=== PATIENT | male | born 1950 | race Two or more races ===

== ENCOUNTER 2020-09-04 07:15 | Inpatient (IN) | payer OTHER ==
[~2020-09-04] VITALS: Ht 175.3 cm; Wt 74.8 kg
[2020-09-04] MEDS ORDERED: AMLOD PO (08:27)
[2020-09-04] MEDS ORDERED: FENOFIBRA PO (08:27)
[2020-09-04] MEDS ORDERED: HYDRALAZINE HCL50 MG PO (08:27)
[2020-09-04] MEDS ORDERED: SIMVAST PO (08:28)
[2020-09-04] MEDS ORDERED: DOXAZOSIN MESYLA2 MG PO (08:28)
[2020-09-04] MEDS ORDERED: [UNRECOGNIZED DRUG - CODE] PO (08:29)
[2020-09-04] MEDS ORDERED: FOLIC ACID PO (08:30)
[2020-09-18] MEDS ORDERED: SIMVASTATIN20 MG (08:10)
[2020-09-18] MEDS ORDERED: LIPOFEN150 MG (08:11)
[2020-09-18] MEDS ORDERED: FOLIC ACID1 MG (08:12)
[2020-09-19] MEDS ORDERED: M930 ML PO (08:21)
[2020-09-19] MEDS ORDERED: NORVASC2.5 M1 (08:23)
[2020-09-20] MEDS ORDERED: OXYC1TAB9 PO (06:36)
[2020-09-20] MEDS ORDERED: INTEGRA PLUS C1 EACH PO (06:36)
[2020-09-20] MEDS ORDERED: XARELTO10 MG PO (06:36)
[2020-09-20] MEDS ORDERED: BACTRIM DS TAB1 EACH PO (06:36)
== END 2020-09-20 16:10 | DRG 470 ==
LOC: SURH 09-11 07:15 → O/R 09-18 05:50 → SURG 09-18 14:24
PROVIDERS: ADMIT Orthopaedic Surgery Sports Medicine; ATTEND Orthopaedic Surgery Sports Medicine
PROC: 0SRB0JZ Replacement of Left Hip Joint with Synthetic Substitute, Open Approach (ICD-10-PCS; principal; 2020-09-18 06:27)
DX: M16.12 Unilateral primary osteoarthritis, left hip (principal)

== ENCOUNTER 2020-09-15 13:27 | Outpatient (CLI) | payer OTHER ==
[~2020-09-15 13:27] MED LIST: AMLOD PO; DOXAZOSIN MESYLA2 MG PO; FENOFIBRA PO; FOLIC ACID PO; HYDRALAZINE HCL50 MG PO; SIMVAST PO; [UNRECOGNIZED DRUG - CODE] PO
== END 2020-09-15 13:35 | disposition home or self-care (01) ==
LOC: LAB 13:27
PROVIDERS: ATTEND Orthopaedic Surgery Sports Medicine
DX: Z20.828 Contact with and (suspected) exposure to other viral communicable diseases (principal)

== ENCOUNTER 2021-03-06 08:00 | Inpatient (IN) | payer OTHER ==
[~2021-03-06] VITALS: Ht 175.3 cm; Wt 74.8 kg
[~2021-03-06 08:00] MED LIST changes: +BACTRIM DS TAB1 EACH PO; +FOLIC ACID1 MG; +INTEGRA PLUS C1 EACH PO; +LIPOFEN150 MG; +M930 ML PO; +NORVASC2.5 M1; +OXYC1TAB9 PO; +SIMVASTATIN20 MG; +XARELTO10 MG PO
[2021-03-06] MEDS ORDERED: DITROPAN XL5 MG PO (12:35)
[2021-03-14] MEDS ORDERED: INTEGRA PLUS C1 EACH PO (07:55)
[2021-03-14] MEDS ORDERED: BACTRIM DS TAB1 EACH PO (07:55)
[2021-03-14] MEDS ORDERED: XARELTO10 MG PO (07:55)
[2021-03-14] MEDS ORDERED: OXYC1TAB9 PO (07:55)
== END 2021-03-14 18:16 | DRG 470 ==
LOC: SURH 03-12 06:30 → O/R 03-12 06:30 → SURH 03-12 08:00
PROVIDERS: ADMIT Orthopaedic Surgery Sports Medicine; ATTEND Orthopaedic Surgery Sports Medicine
PROC: 0SR90JZ Replacement of Right Hip Joint with Synthetic Substitute, Open Approach (ICD-10-PCS; principal; 2021-03-12 10:45)
DX: M16.11 Unilateral primary osteoarthritis, right hip (principal)